=== PATIENT | female | born 1960 | race African-American/Black ===

== ENCOUNTER 2018-08-28 14:30 | Emergency (ER) | payer OTHER ==
[~2018-08-28] VITALS: Ht 167.6 cm; Wt 78.0 kg
[~2018-08-28 14:30] MED LIST: AUGMENTIN 875875 M1; LORTAB 5 MG/5001 TA1; SENNA-S TABLET1 EACH; ZESTRIL20 MG PO
[2018-08-28] MEDS ORDERED: LISINOPRIL-HCT1 EAC1 PO (14:37)
[2018-08-28] MEDS ORDERED: HYDROCODONE-AP1 EAC6 PO (16:55)
[2018-08-28 17:40] VITALS: BP 125/72
== END 2018-08-28 17:42 | disposition home or self-care (01) ==
LOC: ER 14:30
DX: S82.831A Other fracture of upper and lower end of right fibula, initial encounter for closed fracture (principal); S93.04XA Dislocation of right ankle joint, initial encounter; I10 Essential (primary) hypertension; Z88.6 Allergy status to analgesic agent; W10.9XXA Fall (on) (from) unspecified stairs and steps, initial encounter; Y93.89 Activity, other specified; Y92.89 Other specified places as the place of occurrence of the external cause; Y99.8 Other external cause status

== ENCOUNTER 2018-09-26 05:25 | Day surgery (SDC) | payer BC, OTHER ==
[~2018-09-26] VITALS: Ht 167.6 cm; Wt 73.5 kg
--- NOTE | ~2018-09-26 | O ---
[facility] [place] [address] OPERATIVE REPORT Name: ZEKE PHOENIX Room #: 150-5 [facility]..#: [id number] Admission: 09/26/18 Attend Phys: Rufino Holland MD Discharge: Date of : 62 Report #: [id number] THIS REPORT FOR: //name// CC: Rufino Helmsandie Reeves DATE OF SERVICE: 09/26/2018 PREOPERATIVE DIAGNOSIS: Right ankle distal fibular fracture. POSTOPERATIVE DIAGNOSIS: Right ankle distal fibular fracture. PROCEDURE: Open reduction and internal fixation, right lateral malleolar fracture. SURGEON: Rufino Holland M.D. HEEL COMPRESSOR: Jyoti Gómez. ANESTHESIA: General. ESTIMATED BLOOD LOSS: Minimal. DRAINS: None. TOURNIQUET TIME: 30 minutes. DESCRIPTION OF PROCEDURE: The patient brought to the operating room where she was placed under general anesthesia. Once under adequate general anesthesia, her right lower extremity was prepped and draped in sterile manner. The extremity was elevated, exsanguinated, tourniquet placed at 300 mmHg. A lateral incision approximately 10 cm in length was then made over the distal fibular fracture. This was dissected down through soft tissue to the fracture site. Any hematoma was evacuated and the intervening soft tissue between the fracture fragments was removed as well. The fracture was then reduced with a 1/3 tubular plate and two bone reduction tenaculums. Once reduced, fixation was achieved with 3 screws proximal and distal to the fracture site in the 1/3 tubular plate. Excellent fixation and alignment was achieved in this manner as verified under fluoroscopy. The wound was then irrigated copiously and closed with 2-0 Vicryl in subcutaneous tissues and [place] for the skin. The wound was dressed with Xeroform, 4 x 4s, and a sterile soft compressive dressing was placed. Tourniquet was let down at approximately 30 minutes. Toes were pink and warm with good capillary refill. There were no complications from the procedure. [address] [address] OPERATIVE REPORT Name: ZEKE PHOENIX Room #: [address] [place] [address]..#: [id number] Admission: 09/26/18 Attend Phys: Rufino Holland MD Discharge: Date of : 62 Report #: [id number] The patient tolerated the procedure well and went to recovery room without incident. By: [id number] [id number] Rufino Holland MD /nt
[~2018-09-26 05:25] MED LIST changes: +HYDROCODONE-AP1 EAC6 PO; +LISINOPRIL-HCT1 EAC1 PO
[2018-09-26 10:11] LABS: CALCIUM 10.6 mg/dL (8.5-10.1); CREATININE 0.6 mg/dL (0.6-1.0)
[2018-09-26 10:15] LABS: POTASSIUM 2.8 mmol/L (3.5-5.1)
[2018-09-26 10:58] VITALS: BP 112/73
[2018-09-26] MEDS ORDERED: PERCOCET 7.5-31 EACH PO (12:02)
[2018-09-26] MEDS ORDERED: ASA5UEC PO (12:02)
[2018-09-26 12:55] VITALS: BP 112/73
--- NOTE | 2018-09-26 12:55 | EKG ---
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 : 1960 Requested By: Rufino Holland Order Number: [id number] MD: Casa Peña Measurements Intervals [place] Rate: 73 P: 64 FL: 158 QRS: 78 QRSD: 145 T: 30 QT: 432 QTc: 476 Interpretive Statements Sinus rhythm Right bundle branch block Compared to ECG 10/19/2014 13:58:43 No significant change was found Electronically Signed On 09-26-2018 12:55:35 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
== END 2018-09-26 13:45 | disposition home or self-care (01) ==
LOC: OR 05:25 → TBA 05:25 → OR 09:13
PROVIDERS: Orthopaedic Surgery Foot and Ankle Surgery
DX: S82.61XA Displaced fracture of lateral malleolus of right fibula, initial encounter for closed fracture (principal); I10 Essential (primary) hypertension; Z88.8 Allergy status to other drugs, medicaments and biological substances; Z79.82 Long term (current) use of aspirin; Z79.899 Other long term (current) drug therapy; Z87.891 Personal history of nicotine dependence; Z90.49 Acquired absence of other specified parts of digestive tract; Z98.890 Other specified postprocedural states; X58.XXXA Exposure to other specified factors, initial encounter; Y93.89 Activity, other specified; Y92.89 Other specified places as the place of occurrence of the external cause; Y99.8 Other external cause status
CPT/HCPCS: 50010; 50101; 50313; 50386; 51131; 51412; 56524; 56525; 56667; 57091; 57180; 62110; 62900; 70005